=== PATIENT | male | born 1980 | race Caucasian/White ===

== ENCOUNTER 2021-04-26 14:46 | Emergency (ER) | payer SELFPAY ==
[2021-04-26 14:47] VITALS: BP 133/75; PULSE 110; RESP 20; TEMP 36.5; O2SAT 99; BMI 41.3
--- NOTE | 2021-04-26 15:31 | EX.ED.VIS.HA ---
HPI History of Present Illness Chief Complaint: Headache Informant: patient Onset/Context/Timing Onset: Today and Hours Context: Gradual Timing: Continuous Current Severity: Mild Maximum Severity: Moderate Associated Symptoms/Injury Associated Symptoms: Positive for Nausea and Photophobia; Negative for Vomiting, Sore Throat, Sinus Pressure, Numbness, Tingling, Preceding Aura, Visual Changes, Blurred Vision and Visual Loss Injury - [place]: Negative for Direct Trauma, Fall and Assault Narrative Narrative: 40-year-old male awoke this morning with headache with chills and body aches. His brother was recently exposed and became positive for Covid. Patient had one vaccine he thinks it was a J&J but he is unsure. He denies any falls or head trauma. He is on no blood thinners. Initially thought was a headache due to him not having caffeine today. He said he drank caffeine gave no relief. Subjectively has felt feverish but has no documented temperature. He has nausea but no associated vomiting. He does have diarrhea. Prior similar symptoms: No Recent Illness/Hospitalization: No PFSH PFSH Medical History Asthma Home Medications albuterol sulfate [ProAir HFA] 1 - 2 puff INHALATION Q4H PRN PRN 08/15/15 [History Last Taken 08/15/15] Allergy/AdvReac Type Severity Reaction Status Date / Time No Known Allergies Allergy Verified 04/26/21 14:48 Surgical History History of appendectomy Social History Smoking Status: Current every day smoker tobacco type: cigarettes ROS ROS ED Review of Systems ROS Unobtainable: Denies due to encephalopathy Constitutional Constitutional ED: Reports chills, fever(s) and subjective Eyes Eyes: Denies change in vision ENT ENT ED: Denies ear pain or sore throat Cardiovascular Cardiovascular: Denies chest pain Respiratory/Chest Respiratory/Chest: Denies cough or dyspnea Gastrointestinal Gastrointestinal: Reports diarrhea and nausea; Denies abdominal pain or vomiting Genitourinary Genitourinary ED: Denies dysuria Musculoskeletal Musculoskeletal: Reports myalgias Integumentary Denies rash Neurologic Neurologic: Reports headache(s) Psychiatric Psychiatric: Denies depression Endocrine Endocrinology: Denies polyuria Hematologic/Lymphatic Hematologic/Lymphatic: Denies easy bruising Allergic/Immunologic Allergic/Immunologic ED: Denies urticaria EXAM Physical Exam Narrative Exam Narrative: 40-year-old male lying in a darkened room. Vital signs are stable afebrile. Pulse ox 90% on room air no hypoxia. HEENT exam unremarkable atraumatic. Neck nontender no lymphadenopathy. No meningismus. Able to touch chin to chest. Lungs clear to auscultation bilaterally. Heart regular rhythm rate about 100 no murmur. Chest wall nontender. Abdomen soft nontender. Moving all 4 extremities. Skin unremarkable. Neurologically is awake and alert with no focal motor deficits. 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 Dorsi plantarflexion intact. NIH score is 0. Const Vital Signs: 04/26/21 14:47 04/26/21 15:11 Temperature 97.7 F L Temperature Source Temporal Pulse Rate 110 H Respiratory Rate 20 H Respiratory Effort Normal Respiratory Pattern Normal Blood Pressure 133/75 H Blood Pressure Mean 94 Pulse Ox 99 Oxygen Delivery Method Room Air Positive well nourished, well developed and obese; Negative for cachectic, contractures or unkempt General Appearance ED: well developed and NAD; Negative for unkempt, cachectic, contractures, cyanotic, diaphoretic or pallor Nutritional Appearance: obese; Negative for cachectic HEENT Reports normocephalic and moist mucous membranes atraumatic; Negative for trauma or tenderness Eyes PERRL and EOMs intact bilaterally Neck no lymphadenopathy, supple, no meningeal signs and no JVD General: Negative for tenderness Resp normal respiratory effort and clear to auscultation bilaterally Auscultation: Negative for rales, rhonchi or wheezes Cardio regular rate, regular rhythm, S1 normal heart sound, S2 normal heart sound and no murmurs GI non-tender and non-distended Auscultation: normoactive bowel sounds Palpation: soft; Negative for firm, tender, guarding or rigid Back/Spine no CVA tenderness General Back: Negative for CVA tenderness or tenderness Cervical Spine: Negative for cervical spine tenderness Thoracic Spine / Upper Back: Negative for thoracic spinal tenderness Extremity normal to inspection and full ROM; Negative for normal capillary refill General Extremety ED: Negative for edema or tenderness General Extremity: Negative for edema Neuro oriented x3 and no sensory deficits noted Sensorium / Orientation: awake, alert, oriented to person, oriented to place and oriented to time; Negative for orientation impaired, lethargic or stuporous Motor Exam: strength 5/5 throughout Psych mental status grossly normal Appearance: Negative for unkempt Mood & Affect: Negative for depressed or tearful Skin General Skin Exam: elasticity normal; Negative for turgor normal, jaundice or pallor Lesions: no lesions Rashes: no rashes MDM MDM MDM Narrative Medical decision making narrative: 40-year-old male is a viral syndrome. Headache will be treated with Toradol, IV fluids and Compazine. I will get a Covid test on him. Clinically this is not meningitis nor does he have an acute intracranial bleed. Repeat exam at 4:45 PM patient said he feels much better his headache is almost completely resolved. His neurologic exam remains normal. He has full flexion-extension of his neck. He responded well to the IV fluids, Compazine and Toradol. We also discussed his Covid test being negative. Lab Data Attestation: I reviewed the patient's lab results. Lab results narrative: Rapid Covid test negative. Discharge Plan Triage Chief Complaint: Headache ED Provider: Gibson Pickens Dx/Rx/DC Orders Clinical Impression: Viral URI, Acute headache Instructions: ED Headache Unspecified, ED URI, Viral, No Abx (Adult) Prescriptions: No Action albuterol sulfate [ProAir HFA] 1 PUFF inhaler 1 - 2 puff inhalation Q4H PRN PRN (Reason: Asthma) RF: 0 Primary Care Provider: Care Physician,No Primary Referrals: Maximino Madden MD [STAFF PHYSICIAN] - As Needed Care Physician,No Primary [Primary Care Provider] - Activity Restrictions/Additional Instructions: Plenty of fluids and rest. Alternate Tylenol and Motrin for headache. Return if feeling worse. Your Covid test was negative. Disposition Disposition: Home, Self Care
[2021-04-26] MEDS: proCHLORPERazine 10 MG/2 ML Vial IV (15:45)
[2021-04-26] MEDS: Ketorolac 30 MG/ML Syringe IV (15:45)
[2021-04-26] MEDS: 0.9% Normal Saline 1,000 ML 999 ML IV (15:45)
[2021-04-26 16:53] VITALS: BP 134/70; PULSE 81; RESP 16; O2SAT 98
== END 2021-04-26 16:53 | disposition home or self-care (01) ==
PROVIDERS: Emergency Provider Emergency Medicine
DX: J06.9 Acute upper respiratory infection, unspecified (principal); R51.9 Headache, unspecified; F17.210 Nicotine dependence, cigarettes, uncomplicated; E66.9 Obesity, unspecified; J45.909 Unspecified asthma, uncomplicated; Z79.899 Other long term (current) drug therapy
CPT/HCPCS: 87426; 96374; 96375; 99283; J7030; A4216